=== PATIENT | female | born 1955 | race Caucasian/White ===

== ENCOUNTER 2017-04-23 17:51 | Emergency (ER) | payer OTHER ==
[2017-04-23] MEDS ORDERED: cefTRIAXone 1,000 MG in Lidocaine 1% 4 ML IM ONE (18:32)
--- NOTE | 2017-04-23 18:37 | EDM.PDOC ---
ED HPI GENERAL MEDICAL PROBLEM - General Chief Complaint: Lower Extremity Injury/Pain Stated Complaint: INFECTION RT FOOT/TOE Time Seen by Provider: 04/23/17 18:30 Source of Information: Reports: Patient History Limitations: Reports: No Limitations - History of Present Illness INITIAL COMMENTS - FREE TEXT/NARRATIVE: HISTORY AND PHYSICAL: []62-year-old female presenting with infection to her third toe on her right foot History of Present Illness: []Patient had surgery with Dr. Johnson in late March. Over the last 2 days toes become quite erythematous. Patient was started on cephalexin oral antibiotic yesterday for Dr. Kearney. Review of Systems: As per history of present illness and below otherwise all systems reviewed and negative. Past medical history: As per history of present illness and as reviewed below otherwise noncontributory. Surgical history: As per history of present illness and as reviewed below otherwise noncontributory. Social history: No reported history of drug or alcohol abuse. Family history: As per history of present illness and as reviewed below otherwise noncontributory. Physical exam: Alert and oriented female answering questions appropriately in full sentences without any shortness of breath HEENT: Atraumatic, normocehpalic, pupils reactive, negative for conjunctival pallor or scleral icterus, mucous membranes moist, throat clear, neck supple, nontender, trachea midline. Lungs: Clear to auscultation, breath sounds equal bilaterally, chest non tender. Heart: S1S2, regular, negative for clicks, rubs, or JVD. Abdomen: Soft, nondistended, nontender. Negative for masses or hepatossplenmegaly. Negative for costovertebral tenderness. Pelvis: Stable nontender. Genitourinary: Deferred. Rectal: Deferred Extremities: Atraumatic, negative for cords or calf pain. Third toe right foot is beefy red, edematous noted. Neurovascular unremarkable. Neuro: Awake, alert, oriented. Cranial nerves II through XII unremarkable. Cerebellum unremarkable. Motor and sensory unremarkable throughout. Exam nonfocal. Have discussed my concerns with this patient regarding the infection to her right toe. She declines the opportunity to stay in-house and have IV therapy but is agreeable to return twice daily for Rocephin 1 g IV. She is to see Dr. Kearney on tuesday04/26/17. Orders have been written to be treated as an outpatient. Diagnostics: [X-ray right toes] Therapeutics: []Rocephin 1 g IM Impression: [Infected second toe right foot] Plan: [Discharged to home on antibiotics Follow-up closely] Definitive disposition and diagnosis as appropriate pending reevaluation and review of above. Onset: Gradual Duration: Day(s): Location: Reports: Lower Extremity, Right Quality: Reports: Stabbing Severity: Moderate Improves with: Reports: None Worsens with: Reports: None Right 2-Long toe Pain Score (Numeric/FACES): 0 - Related Data Home Meds: Home Meds Cephalexin [Keflex] 500 mg PO TID 04/23/17 [History] Desvenlafaxine [Desvenlafaxine ER] 1 tab PO DAILY 04/23/17 [History] Sulfamethoxazole/Trimethoprim [Bactrim 400-80 MG] 1 tab PO BID 04/23/17 [History ] Review of Systems - Review of Systems Review Of Systems: ROS reveals no pertinent complaints other than HPI. ED EXAM, GENERAL - Physical Exam Exam: See Below (See dictation) Course - Vital Signs Last Recorded V/S: Last Vital Signs Temp 36.8 C 04/23/17 18:02 Pulse 102 H 04/23/17 18:02 Resp 18 04/23/17 18:02 BP 131/71 04/23/17 18:02 Pulse Ox 94 L 04/23/17 18:02 - Orders/Labs/Meds Orders: Active Orders 24 hr Category Date Time Status Toes Third Digit Rt T7 [CR] Stat Exams 04/23/17 18:34 Taken Meds: Medications Discontinued Medications Generic Name Dose Route Start Last Admin Trade Name Matt PRN Reason Stop Dose Admin Ceftriaxone Sodium 1,000 mg/ 4 mls @ 4 mls/sec 04/23/17 18:32 04/23/17 18:55 Lidocaine HCl IM 04/23/17 18:33 4 mls/sec ONETIME ONE Administration Departure - Departure Time of Disposition: 20:54 Disposition: Home, Self-Care 01 Condition: Good Clinical Impression: Cellulitis of toe, right - Discharge Information Referrals: Johny Tirado MD [Primary Care Provider] - Forms: ED Department Discharge Additional Instructions: The following information is given to patients seen in the emergency department who are being discharged to home. This information is to outline your options for follow-up care. We provide all patients seen in our emergency department with a follow-up referral. The need for follow-up, as well as the timing and circumstances, are variable depending upon the specifics of your emergency department visit. If you don't have a primary care physician on staff, we will provide you with a referral. We always advise you to contact your personal physician following an emergency department visit to inform them of the circumstance of the visit and for follow-up with them and/or the need for any referrals to a consulting specialist. The emergency department will also refer you to a specialist when appropriate. This referral assures that you have the opportunity for followup care with a specialist. All of these measure are taken in an effort to provide you with optimal care, which includes your followup. Under all circumstances we always encourage you to contact your private physician who remains a resource for coordinating your care. When calling for followup care, please make the office aware that this follow-up is from your recent emergency room visit. If for any reason you are refused follow-up, please contact the [facility] emergency department at and asked to speak to the emergency department charge nurse. You have been found to have soft tissue infection "cellulitis" to right toe You were given injection of Rocephin here in the ER Orders have been written for Rocephin 1 g IV twice a day 2 days Follow-up with Dr. Kearney on tuesday04/26/17 - My Orders Last 24 Hours: My Active Orders 04/23/17 18:34 Toes Third Digit Rt T7 [CR] Stat - Assessment/Plan Last 24 Hours: My Active Orders 04/23/17 18:34 Toes Third Digit Rt T7 [CR] Stat
--- NOTE | 2017-04-26 14:23 | CR ---
EXAM DATE: 04/23/17 PATIENT'S AGE: 62 Patient: GIN MEANS Facility: [place], [place] Site Site : 1955 Study: XRay Extremity Right 3RD TOE [id number]/23/2017 7:25:20 PM Ordering Physician: RUTHANN STRANGE Final Report: INDICATION: INFECTED TECHNIQUE: Three views of the right lower extremity COMPARISON: None FINDINGS: Bones: No fractures or bone lesions. Type 1 os tibialis externum. Joint spaces: Degenerative changes. Soft tissues: Soft tissue swelling along the 2nd right digit. There appears to be erosive changes along the proximal phalangeal joint of the 2nd digit. IMPRESSION: There appears to be erosive change along the proximal interphalangeal joint of the 2nd digit with surrounding soft tissue swelling. Constellation of findings suggestive of septic arthritis. Dictated by Sammy Holden MD @ 04/23/2017 8:25:08 PM Dictated by: Sammy Holden MD @ 04/23/2017 20:29:49 (Electronic Signature) Report Signed by Proxy. [facility]EROswaldo
== END 2017-04-23 21:18 | disposition home or self-care (01) ==
LOC: MW.ED 17:51
DX: L03.031 Cellulitis of right toe (principal); Z79.899 Other long term (current) drug therapy
CPT/HCPCS: 73660; 96372; 99282; J0696

== ENCOUNTER 2021-07-08 06:52 | Day surgery (SDC) | payer MEDICARE, BC ==
[~2021-07-08 06:52] MED LIST: Acetaminophen 1,000 MG in Premix Bag 1 BAG IV SCH; Albuterol 0.083% 2.5 MG/3 ML Neb Soln NEB PRN; HYDROmorphone 1 MG/ML Syringe IVPUSH PRN; Lactated Ringers 1,000 ML IV SCH; Metoclopramide 10 MG/2 ML SDV IVPUSH PRN; Midazolam 1 MG/ML 2 ML SDV ONE; Morphine 4 MG/ML VIAL IVPUSH PRN; Naloxone 0.4 MG/ML SDV IVPUSH PRN; Ondansetron 4 MG/2 ML SDV IVPUSH PRN; Pregabalin 75 MG Cap PO SCH; Propofol 200 MG/20 ML SDV ONE; cefOXitin 2 GM in Premix Bag 1 BAG IV SCH; fentaNYL 100 MCG/2 ML SDV IVPUSH PRN; fentaNYL 250 MCG/5 ML SDV ONE
[2021-07-08] MEDS ORDERED: Dexmedetomidine 200 MCG/2 ML SDV ONE (06:59)
[2021-07-08] MEDS ORDERED: Ondansetron 4 MG/2 ML SDV ONE (06:59)
[2021-07-08] MEDS ORDERED: Rocuronium Bromide 50 MG/5 ML Syringe ONE (06:59)
[2021-07-08] MEDS ORDERED: Sugammadex Sodium 200 MG/2 ML VIAL ONE (06:59)
[2021-07-08] MEDS ORDERED: Dexamethasone 4 MG/ML 5 ML MDV ONE (06:59)
[2021-07-08] MEDS ORDERED: Water For Injection, Sterile 20 ML ONE ×2 (07:03→09:11)
[2021-07-08] MEDS ORDERED: Bupivacaine 0.5% 30 ML SDV ONE (07:25)
[2021-07-08] MEDS ORDERED: Bupivacaine 0.25% 10 ML SDV ONE (07:25)
[2021-07-08] MEDS ORDERED: Octyl 2-Cyanoacrylate 1 Tube ONE (07:25)
[2021-07-08] MEDS ORDERED: cefOXitin 1 GM Vial ONE (07:27)
[2021-07-08] MEDS ORDERED: Glycopyrrolate 0.2 MG/ML SDV ONE (08:30)
[2021-07-08] MEDS ORDERED: ePHEDrine 50 MG/ML SDV ONE (08:33)
[2021-07-08] MEDS ORDERED: HYDROmorphone 2 MG/ML Syringe ONE (09:10)
== END 2021-07-08 12:05 | disposition home or self-care (01) ==
LOC: MW.SDS 06:52
PROVIDERS: ATTEND Surgery
DX: K80.10 Calculus of gallbladder with chronic cholecystitis without obstruction (principal); I10 Essential (primary) hypertension; F32.A Depression, unspecified; Z88.1 Allergy status to other antibiotic agents; Z91.030 Bee allergy status; Z79.82 Long term (current) use of aspirin; Z79.899 Other long term (current) drug therapy; Z98.890 Other specified postprocedural states
CPT/HCPCS: 00790; 47562; 82947; 88304; A9270-GY; J0131; J0694; J1100; J1170; J2250; J2405; J2704; J3010; J3490; J7030; J7120

== ENCOUNTER 2024-10-12 19:54 | Emergency (ER) | payer MEDICARE, BC ==
[2024-10-12] MEDS ORDERED: Sodium Chloride 0.9% 20 ML SDV IV PRN (21:39)
[2024-10-12] MEDS ORDERED: Sodium Chloride 0.9% 10 ML Syringe FLUSH PRN (21:39)
[2024-10-12] MEDS ORDERED: Sodium Chloride 0.9% 2.5 ML Syringe FLUSH PRN (21:39)
[2024-10-12] MEDS: ceFAZolin 2 GM in Water For Injection, Sterile 20 ML IVPUSH ONE (21:50)
[2024-10-12] MEDS: Lidocaine/Epineph/Tetracaine 3 ML Syringe TOP ONE (22:40)
[2024-10-12] MEDS: Lidocaine 1% 10 ML MDV INJECT ONE (22:40)
[2024-10-12] MEDS: Diphtheria,Pertussis(Acell),Tetanus Vaccine 0.5 ML Syringe IM ONE (22:40)
[2024-10-12] MEDS: Bacitracin Oint 1 GM U/D Packet TOP ONE (23:29)
[2024-10-12] MEDS: Acetaminophen/HYDROcodone 325-5 MG Tab PO ONE (23:36)
== END 2024-10-12 23:46 | disposition home or self-care (01) ==
LOC: MW.ED 19:54
DX: S02.2XXA Fracture of nasal bones, initial encounter for closed fracture (principal); S02.19XA Other fracture of base of skull, initial encounter for closed fracture; W18.39XA Other fall on same level, initial encounter
CPT/HCPCS: 12011; 70450; 70486; 72125; 73100; 73120; 90471; 90715; 96374; 99284; A9270; J0690; J2003; 12041; 99283